=== PATIENT | male | born 1950 | race Caucasian/White ===

== ENCOUNTER 2021-03-20 15:59 | Inpatient (IN) | payer MEDICARE, OTHER ==
[~2021-03-20] VITALS: Ht 172.7 cm; Wt 120.7 kg
[2021-03-20 16:24] LABS: HEMOGLOBIN 14.9 gm/dl (14.0-17.5); RED BLOOD COUNT 4.74 M/UL (4.20-5.50)
[2021-03-20 16:52] LABS: BUN/CREATININE RATIO 23 (0-10)
[2021-03-20] MEDS ORDERED: COREG6.25 MG PO (20:27)
[2021-03-20] MEDS ORDERED: LISINOPRIL20 MG PO (20:28)
[2021-03-20] MEDS ORDERED: FINASTERIDE5 MG PO (20:28)
[2021-03-20] MEDS ORDERED: NORVASC10 MG PO (20:29)
--- NOTE | 2021-03-21 01:09 | NUR ---
NOTIFIED DR OLMSTEAD OF PTS RISING TROPONIN AND ELEVATED D DIMER. ORDER FOR CT CHEST WITH PE PROTOCOL PLACED.
--- NOTE | 2021-03-21 02:34 | NUR ---
RECIEVED CT RESULTS. NOTIFIED DR OLMSTEAD. ORDERS RECIEVED AND PLACED.
[2021-03-21 06:38] LABS: HEMOGLOBIN 13.4 gm/dl (14.0-17.5); RED BLOOD COUNT 4.42 M/UL (4.20-5.50); WHITE BLOOD COUNT 17.5 K/UL (4.5-11.0)
[2021-03-21 07:26] LABS: BUN/CREATININE RATIO 29 (0-10)
[2021-03-22 03:11] LABS: HEMOGLOBIN 12.1 gm/dl (14.0-17.5); RED BLOOD COUNT 4.08 M/UL (4.20-5.50); WHITE BLOOD COUNT 18.7 K/UL (4.5-11.0)
[2021-03-22 04:15] LABS: BUN/CREATININE RATIO 38 (0-10)
[2021-03-23 06:10] LABS: BUN/CREATININE RATIO 37 (0-10)
[2021-03-23 07:28] LABS: HEMOGLOBIN 12.1 gm/dl (14.0-17.5); RED BLOOD COUNT 3.99 M/UL (4.20-5.50); WHITE BLOOD COUNT 14.9 K/UL (4.5-11.0)
[2021-03-24 05:27] LABS: HEMOGLOBIN 12.4 gm/dl (14.0-17.5); RED BLOOD COUNT 4.05 M/UL (4.20-5.50); WHITE BLOOD COUNT 16.3 K/UL (4.5-11.0)
[2021-03-24 05:36] LABS: BUN/CREATININE RATIO 43 (0-10)
[2021-03-25 05:45] LABS: HEMOGLOBIN 13.2 gm/dl (14.0-17.5); RED BLOOD COUNT 4.34 M/UL (4.20-5.50)
[2021-03-25 05:53] LABS: WHITE BLOOD COUNT 27.3 K/UL (4.5-11.0)
[2021-03-26 05:24] LABS: HEMOGLOBIN 12.4 gm/dl (14.0-17.5); RED BLOOD COUNT 4.07 M/UL (4.20-5.50)
[2021-03-26 05:27] LABS: WHITE BLOOD COUNT 17.6 K/UL (4.5-11.0)
[2021-03-28 07:53] LABS: HEMOGLOBIN 11.4 gm/dl (14.0-17.5); RED BLOOD COUNT 3.73 M/UL (4.20-5.50)
[2021-03-28 07:54] LABS: WHITE BLOOD COUNT 10.9 K/UL (4.5-11.0)
[2021-03-28 07:59] LABS: BUN/CREATININE RATIO 52 (0-10)
[2021-03-29 07:28] LABS: HEMOGLOBIN 11.2 gm/dl (14.0-17.5); RED BLOOD COUNT 3.67 M/UL (4.20-5.50)
[2021-03-29 07:57] LABS: BUN/CREATININE RATIO 62 (0-10)
[2021-03-30 06:55] LABS: HEMOGLOBIN 10.9 gm/dl (14.0-17.5); RED BLOOD COUNT 3.71 M/UL (4.20-5.50); WHITE BLOOD COUNT 12.8 K/UL (4.5-11.0)
[2021-03-30 08:29] LABS: BUN/CREATININE RATIO 59 (0-10)
[2021-03-31 09:30] LABS: HEMOGLOBIN 11.7 gm/dl (14.0-17.5); RED BLOOD COUNT 3.84 M/UL (4.20-5.50); WHITE BLOOD COUNT 12.3 K/UL (4.5-11.0)
[2021-03-31 09:52] LABS: BUN/CREATININE RATIO 58 (0-10)
[2021-04-01 06:00] LABS: HEMOGLOBIN 12.2 gm/dl (14.0-17.5); RED BLOOD COUNT 4.01 M/UL (4.20-5.50); WHITE BLOOD COUNT 15.6 K/UL (4.5-11.0)
[2021-04-01 06:54] LABS: BUN/CREATININE RATIO 56 (0-10)
[2021-04-02 05:23] LABS: HEMOGLOBIN 12.4 gm/dl (14.0-17.5); RED BLOOD COUNT 4.02 M/UL (4.20-5.50); WHITE BLOOD COUNT 13.7 K/UL (4.5-11.0)
[2021-04-02 05:44] LABS: BUN/CREATININE RATIO 67 (0-10)
[2021-04-03 07:55] LABS: BUN/CREATININE RATIO 45 (0-10)
[2021-04-04 05:11] LABS: HEMOGLOBIN 14.1 gm/dl (14.0-17.5); RED BLOOD COUNT 4.47 M/UL (4.20-5.50); WHITE BLOOD COUNT 15.1 K/UL (4.5-11.0)
[2021-04-04 05:36] LABS: BUN/CREATININE RATIO 55 (0-10)
[2021-04-05 06:09] LABS: HEMOGLOBIN 13.8 gm/dl (14.0-17.5); RED BLOOD COUNT 4.46 M/UL (4.20-5.50); WHITE BLOOD COUNT 13.6 K/UL (4.5-11.0)
[2021-04-05 06:35] LABS: BUN/CREATININE RATIO 55 (0-10)
[2021-04-05 16:43] LABS: BUN/CREATININE RATIO 60 (0-10)
[2021-04-06 05:09] LABS: HEMOGLOBIN 14.3 gm/dl (14.0-17.5); RED BLOOD COUNT 4.65 M/UL (4.20-5.50); WHITE BLOOD COUNT 14.5 K/UL (4.5-11.0)
[2021-04-06 05:33] LABS: BUN/CREATININE RATIO 63 (0-10)
[2021-04-07 05:06] LABS: BUN/CREATININE RATIO 79 (0-10)
[2021-04-08 03:24] LABS: HEMOGLOBIN 13.9 gm/dl (14.0-17.5); RED BLOOD COUNT 4.53 M/UL (4.20-5.50); WHITE BLOOD COUNT 17.2 K/UL (4.5-11.0)
[2021-04-08 04:01] LABS: BUN/CREATININE RATIO 97 (0-10)
--- NOTE | 2021-04-08 23:51 | NUR ---
ATTEMPTED TO CALL FAMILY REGARDING SIGNING CONSENT FOR IV CONTRAST FOR A CT SCAN. NO ANSWER.
[2021-04-09 04:04] LABS: HEMOGLOBIN 13.9 gm/dl (14.0-17.5); RED BLOOD COUNT 4.48 M/UL (4.20-5.50); WHITE BLOOD COUNT 16.9 K/UL (4.5-11.0)
[2021-04-09 04:23] LABS: BUN/CREATININE RATIO 78 (0-10)
[2021-04-10 02:51] LABS: HEMOGLOBIN 13.1 gm/dl (14.0-17.5); RED BLOOD COUNT 4.38 M/UL (4.20-5.50)
[2021-04-10 02:53] LABS: WHITE BLOOD COUNT 12.1 K/UL (4.5-11.0)
[2021-04-10 03:56] LABS: BUN/CREATININE RATIO 67 (0-10)
[2021-04-11 03:06] LABS: HEMOGLOBIN 12.2 gm/dl (14.0-17.5); RED BLOOD COUNT 4.05 M/UL (4.20-5.50)
[2021-04-11 03:07] LABS: WHITE BLOOD COUNT 8.6 K/UL (4.5-11.0)
[2021-04-11 03:23] LABS: BUN/CREATININE RATIO 80 (0-10)
[2021-04-12 03:13] LABS: HEMOGLOBIN 13.2 gm/dl (14.0-17.5); RED BLOOD COUNT 4.39 M/UL (4.20-5.50); WHITE BLOOD COUNT 10.1 K/UL (4.5-11.0)
[2021-04-12 03:34] LABS: BUN/CREATININE RATIO 62 (0-10)
[2021-04-12] MEDS ORDERED: ASPIRIN81 MG PO (09:34)
[2021-04-12] MEDS ORDERED: MUPIROCIN22 GM TOP (09:34)
[2021-04-12] MEDS ORDERED: IPRATROPIU0.2 MG/1 M NEB (09:34)
[2021-04-12] MEDS ORDERED: LEVALBUTER0.63 MG/3 NEB (09:34)
[2021-04-12] MEDS ORDERED: ELIQUIS 5 MG TAB5 MG PO (09:34)
[2021-04-12] MEDS ORDERED: HYDROCODON-ACE1 EAC2 PO (09:34)
[2021-04-12] MEDS ORDERED: DILTIAZEM 24HR180 M1 PO (09:34)
[2021-04-12] MEDS ORDERED: PROTONIX 40 MG40 M1 PO (09:34)
[2021-04-12 11:20] LABS: BUN/CREATININE RATIO 56 (0-10)
[2021-04-12 17:04] LABS: BUN/CREATININE RATIO 49 (0-10)
[2021-04-12 23:59] LABS: BUN/CREATININE RATIO 49 (0-10)
[2021-04-13 04:22] LABS: HEMOGLOBIN 12.6 gm/dl (14.0-17.5); RED BLOOD COUNT 4.07 M/UL (4.20-5.50)
[2021-04-13 04:48] LABS: BUN/CREATININE RATIO 48 (0-10)
[2021-04-13 11:19] LABS: BUN/CREATININE RATIO 44 (0-10)
[2021-04-13 16:59] LABS: BUN/CREATININE RATIO 41 (0-10)
== END 2021-04-13 19:30 | DRG 870 ==
LOC: ER1 15:59 → CDU 18:29 → PROG CARE 18:29 → CCU 18:29 → PROG CARE 20:30 → CCU 03-22 11:24 → PROG CARE 04-07 20:08
PROVIDERS: Emergency Medicine; Internal Medicine; Internal Medicine Pulmonary Disease; ADMIT Internal Medicine
PROC: 3E0333Z Introduction of Anti-inflammatory into Peripheral Vein, Percutaneous Approach (ICD-10-PCS; 2021-03-20)
PROC: 8E0ZXY6 Isolation (ICD-10-PCS; 2021-03-20)
PROC: XW033E5 Introduction of Remdesivir Anti-infective into Peripheral Vein, Percutaneous Approach, New Technology Group 5 (ICD-10-PCS; 2021-03-21)
PROC: 5A0935A Assistance with Respiratory Ventilation, Less than 24 Consecutive Hours, High Flow/Velocity Cannula (ICD-10-PCS; 2021-03-21)
PROC: 5A09457 Assistance with Respiratory Ventilation, 24-96 Consecutive Hours, Continuous Positive Airway Pressure (ICD-10-PCS; 2021-03-22)
PROC: B24BZZZ Ultrasonography of Heart with Aorta (ICD-10-PCS; 2021-03-23)
PROC: 5A1955Z Respiratory Ventilation, Greater than 96 Consecutive Hours (ICD-10-PCS; principal; 2021-03-24)
PROC: 03HY32Z Insertion of Monitoring Device into Upper Artery, Percutaneous Approach (ICD-10-PCS; 2021-03-24)
PROC: B548ZZA Ultrasonography of Superior Vena Cava, Guidance (ICD-10-PCS; 2021-03-24)
PROC: 02HV33Z Insertion of Infusion Device into Superior Vena Cava, Percutaneous Approach (ICD-10-PCS; 2021-03-24)
PROC: 0BH17EZ Insertion of Endotracheal Airway into Trachea, Via Natural or Artificial Opening (ICD-10-PCS; 2021-03-24)
PROC: XW033H5 Introduction of Tocilizumab into Peripheral Vein, Percutaneous Approach, New Technology Group 5 (ICD-10-PCS; 2021-03-24)
PROC: 3E033XZ Introduction of Vasopressor into Peripheral Vein, Percutaneous Approach (ICD-10-PCS; 2021-03-24)
PROC: 3E0G76Z Introduction of Nutritional Substance into Upper GI, Via Natural or Artificial Opening (ICD-10-PCS; 2021-03-30)
PROC: 0DH67UZ Insertion of Feeding Device into Stomach, Via Natural or Artificial Opening (ICD-10-PCS; 2021-03-30)
PROC: 5A0955A Assistance with Respiratory Ventilation, Greater than 96 Consecutive Hours, High Flow/Velocity Cannula (ICD-10-PCS; 2021-04-04)
DX: A41.89 Other specified sepsis (principal); U07.1 COVID-19; K85.90 Acute pancreatitis without necrosis or infection, unspecified; J12.82 Pneumonia due to coronavirus disease 2019; J80 Acute respiratory distress syndrome; J15.9 Unspecified bacterial pneumonia; I26.99 Other pulmonary embolism without acute cor pulmonale; I21.A1 Myocardial infarction type 2; R65.21 Severe sepsis with septic shock; G93.41 Metabolic encephalopathy; E87.1 Hypo-osmolality and hyponatremia; N17.9 Acute kidney failure, unspecified; Z68.41 Body mass index [BMI] 40.0-44.9, adult; E66.9 Obesity, unspecified; K21.9 Gastro-esophageal reflux disease without esophagitis; M19.012 Primary osteoarthritis, left shoulder; F17.220 Nicotine dependence, chewing tobacco, uncomplicated; M19.011 Primary osteoarthritis, right shoulder; N20.0 Calculus of kidney; N40.0 Benign prostatic hyperplasia without lower urinary tract symptoms; K57.30 Diverticulosis of large intestine without perforation or abscess without bleeding; I49.1 Atrial premature depolarization; T38.0X5A Adverse effect of glucocorticoids and synthetic analogues, initial encounter; R73.9 Hyperglycemia, unspecified; S00.31XA Abrasion of nose, initial encounter; E87.5 Hyperkalemia; G47.33 Obstructive sleep apnea (adult) (pediatric); J43.9 Emphysema, unspecified; I08.0 Rheumatic disorders of both mitral and aortic valves; R74.01 Elevation of levels of liver transaminase levels; I10 Essential (primary) hypertension; R53.81 Other malaise; R19.7 Diarrhea, unspecified; R13.10 Dysphagia, unspecified; Z79.01 Long term (current) use of anticoagulants; Z79.82 Long term (current) use of aspirin; Z23 Encounter for immunization; Z82.3 Family history of stroke; Z84.89 Family history of other specified conditions; Z87.442 Personal history of urinary calculi
CPT/HCPCS: ECHO; 31500; 36415; 36600; 71045; 74018; 74230; 76705; 80048; 80053; 80061; 82150; 82550; 82553; 82728; 82803; 83036; 83605; 83615; 83690; 83735; 83874; 83880; 84100; 84132; 84484; 85025; 85027; 85379; 85384; 85610; 85730; 86140; 87040; 87081; 87449; 92526; 92610; 92611-GN; 93005; 93306; 94002; 94003; 94640; 94660; 94664; 94760; 96365; 96366; 96375; 97110-GP-CQ; 97162; 97530; 97530-GP-CQ; 99285; C1751; C9113; J0248; J0330; J0360; J0456; J0696; J1100; J1205; J1650; J1940; J2020; J2060; J2185; J2250; J2270; J2543; J2704; J3010; J3480; J7030; J7040; J7070; Q0249; Q9967; U0002